=== PATIENT | male | born 1985 | race Caucasian/White ===

== ENCOUNTER → 2016-07-03 | Outpatient (CLI) | payer OTHER ==
--- NOTE | 2016-07-03 11:45 | Diagnostic Imaging Report ---
Scrotal ultrasound. INDICATION: Scrotal pain and swelling. FINDINGS: The right testicle is 4.3 x 2.1 x 2.5 cm. The left testicle is 3.7 x 2.4 x 2.5 cm. Both testicles appear fairly homogeneous with no focal lesion. There is a small left hydrocele. The left epididymis demonstrates edema and increased vascularity compatible with epididymitis. Both testicles demonstrate arterial and venous waveforms with no evidence of torsion. No solid mass seen. IMPRESSION: Findings suggestive of left epididymitis. Dictated by: Dictated on workstation # [id number]
== END ==
LOC: RAD 10:47
PROVIDERS: ATTEND Family Medicine
DX: N50.89 Other specified disorders of the male genital organs (principal); N50.812 Left testicular pain
CPT/HCPCS: 76870